=== PATIENT | female | born 1980 | race Caucasian/White ===

== ENCOUNTER 2017-09-07 08:47 | Emergency (ER) | payer SELFPAY ==
[2017-09-07] MEDS ORDERED: NORMAL SALINE 1000 ML 1,000 ML IV ONE (09:28)
--- NOTE | 2017-09-07 09:29 | ER Document Report ---
ED Medical Screen (RME) - General Chief Complaint: Abdominal Pain Stated Complaint: ABDOMINAL PAIN Time Seen by Provider: 09/07/17 09:27 Notes: pt here with 3 days of periumbilical pain that is now in RLQ. has vomiting. no urinary/stool abnormalities. no previous abd surg except TL. TRAVEL OUTSIDE OF THE [place] IN LAST 30 DAYS: No - Related Data Allergies/Adverse Reactions: latex [Latex] Allergy (Verified 03/13/14 20:47) nickel Allergy (Verified 09/07/17 08:48) Sulfa (Sulfonamide Antibiotics) Allergy (Verified 03/13/14 20:47) Past Medical History - Social History Frequency of alcohol use: Social Drug Abuse: None - Past Medical History Cardiac Medical History: Reports: Hx Hypercholesterolemia, Hx Hypertension Renal/ Medical History: Denies: Hx Peritoneal Dialysis Psychiatric Medical History: Reports: Hx Bipolar Disorder - Immunizations Hx Diphtheria, Pertussis, Tetanus Vaccination: Yes Physical Exam - Vital signs Vitals: Temp Pulse Resp BP Pulse Ox 99.0 F 91 16 144/78 H 100 09/07/17 09:00 09/07/17 09:00 09/07/17 09:00 09/07/17 09:00 09/07/17 09:00 Course - Vital Signs Vital signs: Temp Pulse Resp BP Pulse Ox 99.0 F 91 16 144/78 H 100 09/07/17 09:00 09/07/17 09:00 09/07/17 09:00 09/07/17 09:00 09/07/17 09:00
[2017-09-07 10:00] LABS: ABSOLUTE BASOPHILS # (AUTO) 0.1 10^3/uL (0.0-0.2); ABSOLUTE EOSINOPHILS # (AUTO) 0.1 10^3/uL (0.0-0.6); ABSOLUTE LYMPHOCYTES (AUTO) 2.1 10^3/uL (0.5-4.7); ABSOLUTE MONOCYTES (AUTO) 0.6 10^3/uL (0.1-1.4); ABSOLUTE NEUT (AUTO) 4.8 10^3/uL (1.7-8.2); EOSINOPHILS % (AUTO) 1.7 % (0-6); HEMATOCRIT 46.3 % (36.0-47.0); HEMOGLOBIN 15.5 g/dL (12.0-15.5); MEAN CORPUSCULAR HEMOGLOBIN 29.6 pg (27.0-33.4); MEAN CORPUSCULAR HGB CONC 33.5 g/dL (32.0-36.0); MEAN CORPUSCULAR VOLUME 88 fl (80-97); MONOCYTES % (AUTO) 8.1 % (3-13); PLATELET COUNT 405 10^3/uL (150-450); RED BLOOD COUNT 5.24 10^6/uL (3.72-5.28); RED CELL DISTRIBUTION WIDTH 15.1 % (11.5-14.0); SEGMENTED NEUTROPHILS % (AUTO) 62.2 % (42-78); TOTAL CELLS COUNTED % (AUTO) 100 %; WHITE BLOOD COUNT 7.7 10^3/uL (4.0-10.5)
[2017-09-07 10:04] LABS: APPEARANCE,URINE CLEAR; BILIRUBIN,URINE NEGATIVE (NEGATIVE); COLOR,URINE STRAW; GLUCOSE, URINE NEGATIVE (NEGATIVE); KETONES,URINE NEGATIVE (NEGATIVE); LEUKOCYTE ESTERASE,URINE NEGATIVE (NEGATIVE); NITRITE,URINE NEGATIVE (NEGATIVE); PROTEIN,URINE NEGATIVE (NEGATIVE); URINE SPECIFIC GRAVITY 1.003; UROBILINOGEN,URINE NEGATIVE mg/dL (<2.0)
[2017-09-07 10:13] LABS: ALANINE AMINOTRANSFERASE 23 U/L (9-52); ALKALINE PHOSPHATASE 81 U/L (38-126); ANION GAP 12 (5-19); ASPARTATE AMINO TRANSFERASE 24 U/L (14-36); BILIRUBIN,DIRECT 0.3 mg/dL (0.0-0.4); BILIRUBIN,TOTAL 0.3 mg/dL (0.2-1.3); BLOOD UREA NITROGEN 9 mg/dL (7-20); CALCIUM 10.6 mg/dL (8.4-10.2); CARBON DIOXIDE 24 mmol/L (22-30); CHLORIDE 108 mmol/L (98-107); GLUCOSE 76 mg/dL (75-110); POTASSIUM 4.3 mmol/L (3.6-5.0); SODIUM 144.1 mmol/L (137-145); TOTAL PROTEIN 8.5 g/dL (6.3-8.2)
[2017-09-07 10:23] LABS: POIKILOCYTOSIS 1+
[2017-09-07 10:24] LABS: ANISOCYTOSIS SLIGHT; PLATELET COMMENT ADEQUATE; STOMATOCYTES 1+
[2017-09-07] MEDS ORDERED: FENTANYL CITRATE INJ/PF 100 MCG/2 ML AMPUL IV ONE (11:44)
[2017-09-07] MEDS ORDERED: ONDANSETRON HCL INJ/PF 4 MG/2 ML SDV IV ONE (11:44)
--- NOTE | 2017-09-07 11:46 | ER Document Report ---
ED GI/ - General Mode of Arrival: Ambulatory Information source: Patient TRAVEL OUTSIDE OF THE [place] IN LAST 30 DAYS: No <JOAQUÍN SERRANO - Last Filed: 09/07/17 11:48> <SARAHGRICELDA Shaffer - Last Filed: 09/08/17 09:27> - General Chief Complaint: Abdominal Pain Stated Complaint: ABDOMINAL PAIN Time Seen by Provider: 09/07/17 09:27 Notes: Patient is a 36 year old female presenting to the emergency department complaining of abdominal pain onset 3 days ago and lower back pain onset this morning. Patients associated symptoms include nausea, vomiting, diarrhea, and fever. Patient states her abdominal pain first started in her periumbilical region 3 days ago and moved to the right lower quadrant this morning. Patient describes the pain as intermittently sharp but constantly dull. Patient denies dysuria, vaginal discharge, blood in stool or hematemesis. Patient is currently taking Cymbalta, Gabapentin, and Verapamil. (JOAQUÍN SERRANO) - Related Data Allergies/Adverse Reactions: latex [Latex] Allergy (Verified 03/13/14 20:47) nickel Allergy (Verified 09/07/17 08:48) Sulfa (Sulfonamide Antibiotics) Allergy (Verified 03/13/14 20:47) Past Medical History - General Information source: Patient - Social History Smoking Status: Current Every Day Smoker Frequency of alcohol use: Social Drug Abuse: None Family History: Reviewed & Not Pertinent Patient has suicidal ideation: No Patient has homicidal ideation: No - Past Medical History Cardiac Medical History: Reports: Hx Hypercholesterolemia, Hx Hypertension Psychiatric Medical History: Reports: Hx Bipolar Disorder - Immunizations Hx Diphtheria, Pertussis, Tetanus Vaccination: Yes <JOAQUÍN SERRANO - Last Filed: 09/07/17 11:48> Review of Systems - Review of Systems Constitutional: See HPI, Fever EENT: No symptoms reported Cardiovascular: No symptoms reported Respiratory: No symptoms reported Gastrointestinal: See HPI, Abdominal pain, Diarrhea, Nausea, Vomiting Genitourinary: No symptoms reported Female Genitourinary: No symptoms reported Musculoskeletal: See HPI Skin: No symptoms reported Hematologic/Lymphatic: No symptoms reported Neurological/Psychological: No symptoms reported -: Yes All other systems reviewed and negative <JOAQUÍN SERRANO - Last Filed: 09/07/17 11:48> Physical Exam - General General appearance: Appears well, Alert, Anxious In distress: None - HEENT Head: Normocephalic, Atraumatic Eyes: Normal Conjunctiva: Normal Pupils: PERRL Mucous membranes: Normal - Respiratory Respiratory status: No respiratory distress Chest status: Nontender Breath sounds: Normal Chest palpation: Normal - Cardiovascular Rhythm: Regular Heart sounds: Normal auscultation Murmur: No Friction rub: No Gallop: None auscultated - Abdominal Inspection: Normal Distension: No distension Bowel sounds: Normal Tenderness: Tender - LLQ, Rebound - right lower quadrant, Other - Postive Rovsing in RLQ Organomegaly: No organomegaly - Back Back: CVA tenderness - Right - Extremities General upper extremity: Normal inspection, Normal ROM General lower extremity: Normal inspection, Normal ROM - Neurological Neuro grossly intact: Yes Cognition: Normal Orientation: AAOx4 Aleksandr Coma Scale Eye Opening: Spontaneous Aleksandr Coma Scale Verbal: Oriented Aleksandr Coma Scale Motor: Obeys Commands Aleksandr Coma Scale Total: 15 Speech: Normal - Psychological Associated symptoms: Normal affect, Normal mood - Skin Skin Temperature: Warm Skin Moisture: Dry Skin Color: Normal <JOAQUÍN SERRANO - Last Filed: 09/07/17 11:48> - Vital signs Vitals: Temp Pulse Resp BP Pulse Ox 99.0 F 91 16 144/78 H 100 09/07/17 09:00 09/07/17 09:00 09/07/17 09:00 09/07/17 09:00 09/07/17 09:00 Course - Laboratory Result Diagrams: 09/07/17 09:40 09/07/17 09:40 <JOAQUÍN SERRANO - Last Filed: 09/07/17 11:48> - Laboratory Result Diagrams: 09/07/17 09:40 09/07/17 09:40 <GRICELDA SMITH - Last Filed: 09/08/17 09:27> - Re-evaluation Re-evalutation: 09/07/17 14:44 She well-appearing in no acute distress in the emergency department remained afebrile. CT abdomen shows 4 mm right ovarian cyst with no edematous changes to suggest torsion per radiology read. Will be discharged with pain and nausea control with return precautions provided. Patient understands and agrees to plan (GRICELDA SMITH) - Vital Signs Vital signs: Temp Pulse Resp BP Pulse Ox 98.2 F 81 18 142/69 H 100 09/07/17 15:23 09/07/17 15:23 09/07/17 15:23 09/07/17 15:23 09/07/17 15:23 - Laboratory Laboratory results interpreted by me: 09/07/17 09/07/17 09:40 09:40 RDW 15.1 H Chloride 108 H Calcium 10.6 H Total Protein 8.5 H Discharge <JOAQUÍN SERRANO - Last Filed: 09/07/17 11:48> <GRICELDA SMITH - Last Filed: 09/08/17 09:27> - Discharge Clinical Impression: Abdominal pain Qualifiers: Abdominal location: right lower quadrant Qualified Code(s): R10.31 - Right lower quadrant pain Condition: Good Disposition: HOME, SELF-CARE Instructions: Abdominal Pain ([facility]) Prescriptions: Hydrocodone/Acetaminophen [[place] 5-325 mg Tabs (6 Tab/ER Disp)] 6 tab PO ASDIR PRN #6 dspk PRN Reason: Ondansetron [Zofran Odt 4 mg Tablet] 1 tab PO ASDIR PRN #15 tab.rapdis PRN Reason: For Nausea/Vomiting Referrals: KOKO MARIO PA-C [Primary Care Provider] - Follow up as needed Scribe Attestation: 09/08/17 09:27 I personally performed the services described documentation, reviewed and edited the documentation which was dictated to describe my presence, and it accurately records my words and actions. (GRICELDA SMITH) Scribe Documentation - Scribe Written by Scribe:: Dmitriy Choe, 09/07/2017 11:47 acting as scribe for :: Sarah <JOAQUÍN SERRANO - Last Filed: 09/07/17 11:48>
--- NOTE | 2017-09-07 13:29 | RADIOLOGY REPORT (SQ) ---
EXAM DESCRIPTION: CT ABD/PELVIS WITH IV ONLY COMPLETED DATE/TIME: 09/07/2017 1:02 pm REASON FOR STUDY: RLQ pain, Rovsings sign, pain started umbilical COMPARISON: None TECHNIQUE: CT scan of the abdomen and pelvis performed using helical scanning technique with dynamic intravenous contrast injection. No oral contrast. Images reviewed with lung, soft tissue, and bone windows. Reconstructed coronal and sagittal MPR images reviewed. Delayed images for evaluation of the urinary system also acquired. All images stored on PACS. All CT scanners at this facility use dose modulation, iterative reconstruction, and/or weight based d osing when appropriate to reduce radiation dose to as low as reasonably achievable (ALARA). [facility]: Dose Right [facility]: CareDose [facility]: Dose Right [facility]: Teradose 4D [facility]: Keypr CONTRAST TYPE AND DOSE: contrast/concentration: Isovue 370.00 mg/ml; Total Contrast Delivered: 80.0 ml; Total Saline Delivered: 55.0 ml 80 mL Isovue 370 intravenously RENAL FUNCTION: Creatinine 0.71. HCG negative. RADIATION DOSE: CT Rad equipment meets quality standard of care and radiation dose reduction techniq ues were employed. CTDIvol: 8.9 - 12.5 mGy. DLP: 1147 mGy-cm.. LIMITATIONS: None. FINDINGS: LOWER CHEST: No significant findings. No nodules or infiltrates. LIVER: Normal size. No masses. No dilated ducts. SPLEEN: Normal size. No focal lesions. PANCREAS: No masses. No significant calcifications. No adjacent inflammation or peripancreatic fluid collections. Pancreatic duct not dilated. GALLBLADDER: No identified stones by CT criteria. No inflammatory changes to suggest cholecystitis. ADRENAL GLANDS: No significant masses or asymmetry. RIGHT KIDNEY AND URETER: No solid masses. No significant calcifications. No hydronephrosis or hyd roureter. LEFT KIDNEY AND URETER: No solid masses. No significant calcifications. No hydronephrosis or hydr oureter. AORTA AND VESSELS: No AAA. RETROPERITONEUM: No retroperitoneal adenopathy, hemorrhage or masses. BOWEL AND PERITONEAL CAVITY: No masses or inflammatory changes. No free fluid or peritoneal masses. APPENDIX: The appendix is not seen. Correlate clinically. PELVIS: 4 cm right ovarian cyst . IUD and operative changes noted of the pelvis ABDOMINAL WALL: No masses. No hernias. BONES: No significant or acute findings. OTHER: No other significant finding. IMPRESSION: 4 cm right ovarian cyst. IUD and operative change of the anatomic pelvis. TECHNICAL DOCUMENTATION: JOB ID: [id number] Quality ID # [id number]: Final reports with documentation of one or more dose reduction techniques (e.g., Au tomated exposure control, adjustment of the mA and/or kV according to patient size, use of iterative reconstruction technique) 2010 [employer]- All Rights Reserved
[2017-09-07] MEDS ORDERED: HYDROCODONE/ACETAMINOPHEN 5-325 MG (6 TAB/ER DISP) PO PRN (15:12)
[2017-09-07 15:27] VITALS: BP 142/69
== END 2017-09-07 15:32 | disposition home or self-care (01) ==
LOC: ER 08:47
DX: R10.31 Right lower quadrant pain (principal); R11.2 Nausea with vomiting, unspecified; R19.7 Diarrhea, unspecified; R50.9 Fever, unspecified; F17.200 Nicotine dependence, unspecified, uncomplicated
CPT/HCPCS: 99284; 96361; 96374; 96375; 36415; 85025; 81025; 80053; 81001; 74177; J3010; J2405; J7030